=== PATIENT | female | born 1935 ===

== ENCOUNTER → 2016-12-21 | Outpatient (CLI) | payer MEDICARE, OTHER ==
[~2016-12-21] VITALS: Ht 157.5 cm; Wt 83.7 kg
[2016-12-21 13:41] VITALS: BP 158/79
== END | disposition home or self-care (01) ==
LOC: SRCNTR 13:34
PROVIDERS: ATTEND Internal Medicine
DX: E66.9 Obesity, unspecified (principal); D64.9 Anemia, unspecified; R09.02 Hypoxemia
CPT/HCPCS: G0463